=== PATIENT | male | born 1970 | race Two or more races ===

== ENCOUNTER 2021-10-27 15:58 | Emergency (ER) | payer MEDICAID ==
[~2021-10-27] VITALS: Ht 175.3 cm; Wt 79.5 kg
[2021-10-27 16:05] VITALS: BP 131/93
[2021-10-27] MEDS ORDERED: IBUP800T27 PO (17:48)
[2021-10-27] MEDS ORDERED: PRED20TA2 PO (17:48)
== END 2021-10-27 18:05 | disposition home or self-care (01) ==
LOC: ER 15:58
DX: G56.02 Carpal tunnel syndrome, left upper limb (principal); I10 Essential (primary) hypertension; F17.210 Nicotine dependence, cigarettes, uncomplicated; Z79.1 Long term (current) use of non-steroidal anti-inflammatories (NSAID); Z79.899 Other long term (current) drug therapy
CPT/HCPCS: 72040